=== PATIENT | female | born 1960 | race Caucasian/White ===

== ENCOUNTER 2021-09-16 16:17 | Inpatient (IN) | payer OTHER ==
[~2021-09-16] VITALS: Ht 160 cm; Wt 181.9 kg
--- NOTE | 2021-09-16 19:04 | NUR ---
ADMISSION NOTE: PT ADMITTED AND ORIENTED TO ROOM. PT A/O X 4. NO COMPLAINTS OF PAIN. PT ON BIPAP 07/20 RATE 14 AT 100%. TELEMETRY PLACED. CALL LIGHT AND TABLE WITHIN REACH. FAMILY UPDATED. PT ON ENHANCED PRECAUTIONS DUE TO COVID. PT STATES SHE TESTED POSITIVE FOR COVID APPROX 2 WEEKS AGO. PT SON CALLED AND STATED PT IS PRESCRIBED HYDROCODONE AND HAS TAKEN APPROX 40 PILLS WITHIN THE LAST 3 DAYS. FALL PRECAUTIONS IN PLACE. WILL CONTINUE TO MONITOR.
[2021-09-16 19:26] LABS: BE(vivo) 5.2 mmol/L (-2 to +3); HCO3 33.4 mmol/L (22.0-26.0); PCO2 63.7 mmHg (35.0-45.0); PO2 156.4 mmHg (80.0-100.0); pH 7.338 (7.360-7.450); sO2 98.8 % (92.0-98.0)
[2021-09-16 19:44] VITALS: BP 132/72
[2021-09-16 20:08] LABS: RBC 5.14 mil/uL (4.20-5.00)
[2021-09-16 20:10] LABS: HEMATOCRIT 45.1 % (37.0-47.0); HEMOGLOBIN 15.3 gm/dL (12.0-15.0); MCH 29.8 pg (26.0-34.0); MCHC 33.9 g/dL (28.0-37.0); MCV 87.8 fL (80.0-100.0); RDW 14.2 % (10.5-14.5); WBC 5.4 thou/uL (4.0-11.0)
[2021-09-16 20:26] LABS: ALBUMIN 2.6 g/dL (3.4-5.0); CALCIUM 8.6 mg/dL (8.5-10.1); CREATININE 0.8 mg/dL (0.6-1.0); MAGNESIUM 2.2 mg/dL (1.8-2.4); TOTAL BILIRUBIN 0.5 mg/dL (0.2-1.0); TOTAL PROTEIN 6.9 g/dL (6.4-8.2)
[2021-09-16] MEDS ORDERED: AMBIEN 10 MG TA10 MG (21:55)
[2021-09-16] MEDS ORDERED: NORCO 10-325 T1 EACH PO (21:56)
[2021-09-16] MEDS ORDERED: LYRICA CR165 MG PO (21:57)
[2021-09-16] MEDS ORDERED: CYMBALTA20 MG PO (21:58)
[2021-09-16] MEDS ORDERED: DESYREL150 MG PO (22:04)
--- NOTE | 2021-09-16 23:25 | NUR ---
PT LETHARGIC TRIED TO GET OOB UNASSISTED AND WAS STUCK HALF OUT OF BED WITH BIPAP MASK OFF SATS IN THE 70'S. RETURNED TO BED AND BIPAP REPLACED SATS UP TO 98% WITHIN 60 SECONDS OF BEING REPLACED. BED ALARM SET PT EDUCATED NOT TO GET OOB WITHOUT ASSISTANCE. PUREWICK PLACED. CONTINUE TO MONITOR.
[2021-09-17] VITALS (8 sets, daily range): BP systolic 132–149; BP diastolic 58–80
[2021-09-17 03:02] LABS: HEMATOCRIT 45.1 % (37.0-47.0); MCH 29.2 pg (26.0-34.0); MCHC 33.2 g/dL (28.0-37.0); MCV 88.2 fL (80.0-100.0); RBC 5.12 mil/uL (4.20-5.00); WBC 4.7 thou/uL (4.0-11.0)
[2021-09-17 03:11] LABS: CREATININE 0.7 mg/dL (0.6-1.0); POTASSIUM 3.9 mmol/L (3.5-5.1)
--- NOTE | 2021-09-17 05:21 | NUR ---
PROGRESS PT LETHARGIC BUT WAKES WITH VERBAL STIMULI. ON BIPAP AT 70% SLEPT MOST OF SHIFT. VSS, SATS MAINTAINING READING IN THE UPPER 90'S (97% TO 99%). LUNGS DIMINISHED NO COUGH NOTED. TOOK MEDS WHOLE WITH SIP OF WATER. OFFERED SIPS Q1 TO 2 HRS THROUGHOUT NIGHT WHEN AWAKE. PT DID GET CONFUSED AND TRIED TO GET OOB AT START OF SHIFT. PUREWICK PLACED BUT NO URINARY OUTPUT YET. CONSULTS CALLED. SLIDER PLACED UNDER PT AND BARIATRIC BED TO BE ORDERED IN AM. CONTINUE TO MONITOR.
--- NOTE | 2021-09-17 07:27 | NUR ---
ORDERS FOR EVAL AND TREAT HOWEVER Pt COVID POSITIVE AND ON BIPAP. PER DEPARTMENT PROTOCOL WILL HOLD OFF ON EVAL UNTIL Pt OFF BIPAP AND CAN TOLERATE MOBILITY
--- NOTE | 2021-09-17 13:31 | NUR ---
INITIAL ASSESSMENT: RAHEL reviewed chart and spoke with nursing and attending physician. Pt was transferred to [facility] from [facility], due to COVID. Pt placed in Enhanced Isolation. Pt with hx HTN/obesity. Pt is afebrile and requiring optiflow/bipap support. Pt is on IV abx and IV steroids. RAHEL placed call to pt's spouse, Kris, ([phone]). Voice mail box has not been set up. RAHEL left voice message on additional contact number for Kris ([phone]). Per chart, pt lives in [place], [place]. Therapy ordered and is on hold at this time, until pt is able to participate. RAHEL is following to assist as needed with discharge planning.
[2021-09-17] MEDS ORDERED: FUROSEMIDE 40 M40 MG PO (17:16)
[2021-09-17] MEDS ORDERED: LINZESS290 MCG PO (17:18)
[2021-09-17] MEDS ORDERED: COZAAR 25 MG TA25 M1 PO (17:21)
[2021-09-17] MEDS ORDERED: MELOXICAM15 MG PO (17:24)
[2021-09-17] MEDS ORDERED: OMEPRAZOLE40 MG PO (17:24)
--- NOTE | 2021-09-17 18:25 | NUR ---
PT A/O X 4. PT TRANSFERRED TO BARIATRIC BED DURING SHIFT. PT ABLE TO GET UP TO BSC X 2. BM X 2, DIARRHEA. PT TITRATED DOWN FROM BIPAP TO OPTIFLOW CURRENTLY AT 50 L 80% FIO2. NO URINE OUTPUT DURING SHIFT. WHEN RN ASKED ABOUT URINATION, PT REPLIED THAT SHE TAKES "WATER PILL AT HOME". NOT IN MED REC. UPDATED PT MED REC. SPOKE WITH FAMILY AND UPDATED. PT AT TIMES ANXIOUS AND ASKED THIS RN "AM I GOING TO ". POOR INTAKE. FALL PRECAUTIONS IN PLACE. WILL CONTINUE TO MONITOR.
--- NOTE | 2021-09-17 21:45 | NUR ---
PT ALERT AND ORIENTED X4. VSS AFEBRILE. SAT 96% ON OPTIFLOW. RT PLACED PT ON BIPAP AT HS 70% FIO2. LUNGS SOUND DIMINISHEWD. UNLABORED ON BIPAP. C/O GENERALIZED PAIN. MEDICATED WITH 1 OXYCODONE. BED DOWN CALL LIGHT IN REACH. PT ON ESTELLE MATTRESS.
[2021-09-18 04:30] VITALS: BP 147/78
[2021-09-18 05:07] LABS: GLYCOHEMOGLOBIN (HGB A1C) 5.3 % (4.8-5.6)
--- NOTE | 2021-09-18 05:22 | NUR ---
PT SLEEPY AWAKENS EASILY. VSS 98.3 AX. PT C/O GENERALIZED DISCOMFORT. MEDICATED WITH 1 HYDROCODONE. PRESENTLY PT FELL BACK ASLEEP NO S/S DISCOMFORT. PT ON BIPAP 70% FIO2. UNLABORED PRESENTLY . 94% ON BIPAP. CEFEPIME INFUSING R CHRISTIANSON ORDERED. PRINCE PLACED EARLIER DUE TO PT HAD NOT VOIDED SINCE AFTER DAY SHIFT BLADDER SCANNED PT. WAS NOTIFIED ON DAY SHIFT. LASIX GIVEN ORDERED. NOTIFIED PHYSICAL THERAPIST PT HAD NOT VOIDED AFTER LASIX GIVEN AND OF 701ML VOLUME SCANNED FROM BLADDER SCANNER. PRINCE PLACED ORDERED. 700 ML TEA COLORED URINE DRAINED FROM CATHETER IMMEDIATELY WHEN CATHETER PLACED. TOTAL 900 ML DRAINED THIS SHIFT. NO BM THIS SHIFT SO FAR. ZGARD APPLIED TO GRANT AREA. AND SKIN FOLDS. PT STATED BARIATRIC MATTRESS FEELS BETTER AFTER LUMP INFLATED UNDERNEATH HER.
[2021-09-18 08:23] VITALS: BP 136/65
--- NOTE | 2021-09-18 09:19 | HC ---
[facility] [place] [address] [address] CONSULTATION Name: CHRISTI WOODY Room #: 356-P ADM IN M.R.#: [id number] Admission: 09/16/21 Attend Phys: Jose Lees MD Discharge: Date of : 58 Report #: [id number] THIS REPORT FOR: cc: UNKNOWN UNKNOWN Froy Graf MD ~ DATE OF SERVICE: 09/17/2021 INFECTIOUS DISEASE CONSULTATION ATTENDING PHYSICIAN: Dr. Santiago. REASON FOR EVALUATION: Recent diagnosis of COVID-19 infection complicated by pneumonitis and respiratory failure. The patient with morbid obesity. HISTORY OF PRESENT ILLNESS: Chart reviewed. The patient examined. This is a 60-year-old woman who was admitted in transfer with progressive dyspnea, was diagnosed with COVID-19 pneumonia, apparently had been ill for the last 2 weeks, was found to be hypoxemic, subsequently required increasing supplemental oxygen, now on BiPAP at 70% on transfer. It is not clear if she had any fevers or chills. Did admit to cough. Notes she had some anorexia, although taking small amounts of p.o. No significant nausea or diarrhea. Initial ABGs show pH of 7.338, pCO2 of 63.7, pO2 of 156.4 and was on FiO2 of 100%, basically on BiPAP. ProBNP had elevated at 2789, procalcitonin 0.23. She is currently on 50 liters per minute, FiO2 of 91% on Optiflow. ALLERGIES: None known. CURRENT MEDICATIONS: Include enoxaparin, insulin lispro, ceftriaxone, azithromycin, ascorbic acid, zinc, dexamethasone, and famotidine. PAST MEDICAL HISTORY: History of fibromyalgia, hypertension, morbid obesity, and chronic knee pain. SOCIAL HISTORY: Nonsmoker, no ethanol, no illicit drug use. FAMILY HISTORY: Noncontributory. REVIEW OF SYSTEMS: Otherwise, unremarkable with the exception of the above. PHYSICAL EXAMINATION: GENERAL: Again, she is morbidly obese. She is generally lucid. She is in moderate distress. VITAL SIGNS: Temperature 97.5, pulse 91, respirations 12, blood pressure 132/74, saturation is 96%. SKIN: Warm, dry, no rashes. [address] [address] CONSULTATION Name: CHRISTI WOODY Room #: 356-P [facility] IN .R.#: [id number] Admission: 09/16/21 Attend Phys: Jose Lees MD Discharge: Date of : 58 Report #: [id number] HEENT: Normocephalic. Extraocular muscles intact. Nasal cannula with Optiflow in place. NECK: Supple. It is thick. LUNGS: Overall diminished breath sounds. Few scattered coarse sounds. HEART: Distant, regular, borderline tachycardic. ABDOMEN: Large pannus, generally firm, nontender. GENITOURINARY AND RECTAL: Deferred. LABORATORY DATA: Recent electrolytes, sodium 138, potassium 3.9, chloride 96, bicarbonate is 34, anion gap of 8, BUN and creatinine 20 and 0.7. CBC: White count of 4.7, H and H 15.0 and 45.1, platelets 164. ASSESSMENT AND PLAN: COVID-19 infection, complicated by pneumonitis and respiratory failure in a patient with morbid obesity, has been ill for the last couple of weeks, would be concerned about secondary bacterial pneumonitis. I think it is reasonable to broaden out her therapy. She is quite tenuous at this point. Continue dexamethasone and vitamins including cholecalciferol. I do not think there is a role for remdesivir at this point given the 2-week interval since her test positivity. We will repeat a chest x-ray, although probably difficult to ascertain too much information given her size. See how she does clinically continue efforts to wean off oxygen support as allowed. Continue to monitor expectantly. She is certainly at risk for additional complications and clinical deterioration. Continue supportive care. <ELECTRONICALLY SIGNED> By: Froy Graf MD 09/18/21 0919 [id number] Froy Graf MD /nt
[2021-09-18 11:29] VITALS: BP 144/67
--- NOTE | 2021-09-18 11:52 | NUR ---
RAHEL reviewed chart and spoke with nursing and attending physician. Pt remains in Enhanced Isolation due to COVID. Pt is afebrile and requiring optiflow and bipap support. Pt is on IV abx and IV steroids. No weekend discharge planned. Therapy ordered. 5N consult placed today. RAHEL spoke with pt via phone. Introduced role of SW. Pt is alert/orientated x 4. Pt reports she lives at home with her , who is able to assist her as needed. Pt has a walker. No steps to navigate. There is a ramp to enter their home. SW discussed possible post acute placement for continued rehab and medical mgmt. Pt states she would prefer to go home, as she thinks she will recover better at home. SW explained high O2 demands at this time. Pt agreeable to discuss discharge disposition on Tuesday. RAHEL updated 5N rehab physician and attending physician. SW is following to assist as needed with discharge planning.
[2021-09-18 12:17] LABS: BE(vivo) 14.5 mmol/L (-2 to +3); HCO3 39.7 mmol/L (22.0-26.0); PCO2 49.8 mmHg (35.0-45.0); PO2 90.8 mmHg (80.0-100.0); pH 7.519 (7.360-7.450); sO2 97.5 % (92.0-98.0)
[2021-09-18 16:06] VITALS: BP 133/56
[2021-09-18 19:56] VITALS: BP 141/81
[2021-09-19 04:03] VITALS: BP 150/88
--- NOTE | 2021-09-19 04:51 | NUR ---
ASSUMED PT CARE AT 1900. PT IS RESTING COMFORTABLY IN BED. TURNED PT Q2 AND PRN. PT ON OPTIFLOW 50L 70% FIO2 AND USES BIPAP AT BEDTIME SET AT 70% FIO2. O2 SATS >95%. VSS AFEBRILE. PT HAD C/O OF BACK PAIN. ADMINISTERED NORCO PRN AND NOTED RELIEF. PT HAS POOR PO INTAKE. PT IS PROGRESSING SLOWLY TOWARDS POC GOALS. ALL NEEDS ARE MET AT THIS TIME. WILL CONTINUE TO MONITOR FOR ANY CHANGES.
[2021-09-19 07:28] VITALS: BP 152/80
[2021-09-19 11:20] VITALS: BP 146/66
[2021-09-19 15:19] VITALS: BP 157/82
--- NOTE | 2021-09-19 17:14 | NUR ---
NOTIFIED TO PLACE A PERIPHERAL LINE. VEINS IN THE UPPER ARM DEEP, 3-4+CM. DISCUSSED MIDLINE WITH THE PATIENT INCLUDING RISKS AND BENIFITS. SHE CONSENTED TO MIDLINE PLACEMENT. A #4F MIDLINE WAS PLACED PER HOSPITAL POLICY. THE LINE WAS TRIMMED TO 14CM AND ADVANCED WITHOUT DIFFICULTY. THE LINE WAS SECURED AND RELEASED FOR USE
--- NOTE | 2021-09-19 18:26 | NUR ---
ASSUMED PATIENT CARE AT 0700. A/O X4. TOLERATED ON OPTIFLOW. LOOSE STOOL FOUR TIMES. STOOL CDIFF SENT. SLOWLY TOWARDS POC GOALS.
[2021-09-19 19:50] VITALS: BP 144/63
--- NOTE | 2021-09-20 01:28 | NUR ---
PT ALERT AND ORIENTED X4. SHE HAS BEEN PLEASANT AND COOPERATIVE TONIGHT, VSS SR ON THE MONITOR. UNLABORED ON CURRENT OPTI FLOW SETTINGS. RT KEEPING ON OPTIFLOW SINCE SHE IS DOING WELL ON CURRENT SETTINGS. BED DOWN CALL LIGHT IN REACH.
[2021-09-20 03:35] VITALS: BP 152/86
[2021-09-20 07:20] VITALS: BP 171/95
--- NOTE | 2021-09-20 07:43 | NUR ---
PT RESTING QUIETLY TONIGHT. PT MAINTAINED SATS AT 98% ON 50%FIO2 AND 50LF ON THE OPTIFLOW THROUGHOUT THE NIGHT, INC OF STOOL X1. RoseanneGARD APPLIED.VSS.
[2021-09-20 11:14] VITALS: BP 158/84
[2021-09-20 15:23] VITALS: BP 147/89
--- NOTE | 2021-09-20 20:01 | NUR ---
ASSUMED PATIENT CARE AT 0700. A/O X4. FOUR TIMES LOOSE STOOL. TITRATED 02 TO 7L/NC. PATIENT REFUSED REHAB OPTION. UPDATED TO PATIENT SON. SLOWLY TOWARDS POC GOALS.
[2021-09-20 20:41] VITALS: BP 146/88
[2021-09-21 07:47] VITALS: BP 163/100
[2021-09-21 11:44] VITALS: BP 158/84
--- NOTE | 2021-09-21 11:51 | NUR ---
RAHEL reviewed chart and spoke with nursing and attending physician. Pt remains in Enhanced Isolation due to COVID. Pt is afebrile and on 7L of O2. Pt is on IV abx and IV steroids. 5N consulted. Pt would prefer to return directly home upon discharge. RAHEL placed several calls to pt's room. Line is busy. Will need to discuss discharge disposition with pt. Awaiting input from 5N. RAHEL is following to assist as needed with discharge planning.
[2021-09-21 11:59] LABS: HEMATOCRIT 42.9 % (37.0-47.0); HEMOGLOBIN 14.5 gm/dL (12.0-15.0); MCH 28.9 pg (26.0-34.0); MCHC 33.8 g/dL (28.0-37.0); MCV 85.3 fL (80.0-100.0); PLATELET COUNT 168 thou/uL (150-400); RBC 5.03 mil/uL (4.20-5.00); RDW 13.3 % (10.5-14.5); WBC 5.9 thou/uL (4.0-11.0)
[2021-09-21 12:19] LABS: ALBUMIN 2.5 g/dL (3.4-5.0); CALCIUM 9.2 mg/dL (8.5-10.1); CREATININE 0.7 mg/dL (0.6-1.0); TOTAL BILIRUBIN 1.1 mg/dL (0.2-1.0); TOTAL PROTEIN 6.4 g/dL (6.4-8.2)
[2021-09-21 12:29] LABS: ABSOLUTE NEUTROPHILS 4.9 thou/uL (1.4-8.2); ANISOCYTOSIS SLIGHT; METAMYELOCYTES 2 %; MYELOCYTES 2 %
[2021-09-21 15:20] VITALS: BP 152/86
--- NOTE | 2021-09-21 19:27 | NUR ---
ASSUMED PATIENT CARE AT 0700. A/O X4. TITRATED O2 TO 5L/NC. PATIENT NEED 12L/NC WITH ACTIVITY. SLOWLY TOWARDS POC GOALS.
[2021-09-21 21:14] VITALS: BP 142/75
[2021-09-22 02:30] VITALS: BP 167/92
--- NOTE | 2021-09-22 05:01 | NUR ---
Patient is alert and oriented x4. Patient is on enhanced precautions. Patient is on 5L of oxygen during the day, she utilizes CPAP at night when resting. Patients last BM was 09/21/21 and was loose. Patient has had no stools this shift. Patient has a morton in place that is patient. Patient puts out good amounts of yellow urine. Patient is cc/ tele and has been running sinus rhythm this shift. Patient has a midline IV in her right upper arm that is patent. Patient has been reporting increased amounts of pain in her right hip/ leg/ foot. Patient as been treated as ordered with pain medications. Repositioning was offered but patiet shortly after repositioned is yelling out 'help me' 'help me' 'dear god help me'. This RN goes to see what is wrong and patient reports that the repositioning is ineffective and that she wants to go back to her originial positioning. Patient is assisted back to her original positioning. Patient will continue to be monitored.
[2021-09-22 07:41] VITALS: BP 156/74
[2021-09-22 11:33] VITALS: BP 149/79
--- NOTE | 2021-09-22 12:44 | NUR ---
RAHEL reviewed chart and spoke with nursing and attending physician. Pt remains in Enhanced Isolation due to COVID. Pt is afebrile and on 5L of O2 at rest. Pt is on IV steroids. RAHEL faxed [facility] SNF list and [facility] DPOA ppwk to 3W. Nursing provided to pt. RAHEL spoke with pt via phone. Reviewed DPOA document and encouraged pt to notify nursing when she would like to complete form. RAHEL also reviewed SNF list with pt. Pt requests referrals to be sent to [facility]. Pt requests SW notify and discuss with her son, Kris. RAHEL spoke with Kris to provide update. Pt's son is agreeable with the two facilities in [place]. ARHEL faxed referrals to both facilities. RAHEL spoke with Cece in admissions at [facility]. Voice message left for Alex in admissions at [facility]. RAHEL is following to assist as needed with discharge planning. [facility]--
[2021-09-22 16:13] VITALS: BP 137/68
--- NOTE | 2021-09-22 17:23 | NUR ---
PT A/O X 4. PT ON 5 L NC. PT IS TO BE OFF ISOLATION ON 09/24/21. PT HAD LOOSE BM THIS SHIFT, INCONTINENT OF BOWEL. PRINCE IN PLACE. THIS RN ENCOURAGED PT TO DRINK WATER THIS SHIFT, PT STATED "I ONLY LIKE TO DRINK DIET PEPSI". PT HAS POOR APPETITE AND COMPLAINS "ALL FOOD TASTES THE SAME". PT GIVEN DPOA PAPERWORK THIS SHIFT TO SIGN. THIS RN SPOKE WITH PT SON, JOSE, X 3 THIS SHIFT. COMPLAINTS OF KNEE PAIN. WILL CONTINUE TO MONITOR.
[2021-09-22 19:25] VITALS: BP 127/72
[2021-09-23 04:20] VITALS: BP 144/78
--- NOTE | 2021-09-23 06:16 | NUR ---
Patient is alert and oriented x4 this shift. Patient is on enhanced precautions. Patient is on five liters of oxygen at this time. Patient is cc/ tele and has been running sinus rhythm this shift. patient has a foely catheter in place that is patent. patient has had no loose stools for this RN. patient has an midline placed in her right upper arm that is patent and saline locked. patient has reported pain in her right knee multiple times this shift. patient is treated with pain medication as ordered. patient will continue to be monitored.
[2021-09-23 07:54] VITALS: BP 150/75
--- NOTE | 2021-09-23 09:24 | NUR ---
RAHEL reviewed chart. Pt remains in Enhanced Isolation due to COVID. Enhanced Isolation to be discontinued on 09/24/2021, as pt started showing COVID symptoms on 09/03/2021. Pt is afebrile and on 5L of O2. PT is on IV steroids. RAHEL left message for Alex in admissions at [facility]. Pt has been accepted to [facility] from a clinical standpoint. Will need to clarify how much O2 they can provide at the facility. Pt required up to 12L with activitiy on 09/21. Awaiting therapy notes today. RAHEL spoke with Brenda at [facility], who states she will discuss with the clinical team. [place] will most likely not have a bed available this week. RAHEL is following to assist as needed with discharge planning.
[2021-09-23 11:05] VITALS: BP 131/66
[2021-09-23 15:39] VITALS: BP 132/79
--- NOTE | 2021-09-23 17:45 | NUR ---
RESUMED PT CARE THIS AM. PT A/O X 4. PT DISCOURAGED ABOUT NOT GETTING TO SEE FAMILY. THIS RN AFFIRMED PT IS OFF ISOLATION 09/24/21. PT COMPLAINS OF PAIN IN RIGHT KNEE, WITH MODERATE RELIEF FROM MEDICATION. ON [address]. WILL CONTINUE TO MONITOR.
[2021-09-23 19:34] VITALS: BP 131/76
--- NOTE | 2021-09-23 22:34 | NUR ---
PT RESTING IN BED. O2 PER NC 5L. LUNGS DIMINISHED IN BASES. OBESE. PRINCE TO DD. PT OFF ISOLATION TOMORROW AND VERBALIZED EXCITED TO VISIT WITH HER .
[2021-09-24 04:08] VITALS: BP 139/74
[2021-09-24 08:00] VITALS: BP 136/79
[2021-09-24 12:00] VITALS: BP 113/72
--- NOTE | 2021-09-24 15:37 | NUR ---
RAHEL reviewed chart and spoke with nursing and attending physician. Enhanced Isolation precautions have been discontinued. Pt is afebrile and on 5L of O2. Pt is on IV steroids. 5N re-evaluated pt and will submit for insurance authorization today. RAHEL spoke with Alex at [facility], who states that they are checking bed availability due to COVID outbreak at their facility. RAHEL spoke with Brenda at [facility], who states they do not have beds available this week. Brenda states they are willing to re-evaluate pt for possible admission. RAHEL spoke with pt's son, Kris, via phone to provide update. Kris states they would like to see if pt would qualify and be approved for 5N. Kris to discuss with pt and family. RHAEL updated 5N rehab office coordinator. RAHEL is following to assist as needed with discharge planning.
[2021-09-24 15:40] VITALS: BP 130/68
--- NOTE | 2021-09-24 18:38 | NUR ---
PT A/O X 4. PT ON 5 L NC. OFF ISOLATION TODAY, FAMILY AT BEDSIDE. VSS. FALL PRECAUTIONS IN PLACE. WILL CONTINUE TO MONITOR.
[2021-09-24 19:37] VITALS: BP 105/67
[2021-09-25 03:26] VITALS: BP 148/78
[2021-09-25 07:49] VITALS: BP 151/71
[2021-09-25 09:21] LABS: HEMATOCRIT 40.4 % (37.0-47.0); HEMOGLOBIN 13.6 gm/dL (12.0-15.0); MCH 28.9 pg (26.0-34.0); MCHC 33.6 g/dL (28.0-37.0); PLATELET COUNT 279 thou/uL (150-400); RDW 13.6 % (10.5-14.5); WBC 9.7 thou/uL (4.0-11.0)
[2021-09-25 09:41] LABS: ALBUMIN 2.7 g/dL (3.4-5.0); CALCIUM 8.7 mg/dL (8.5-10.1); CREATININE 0.7 mg/dL (0.6-1.0); POTASSIUM 3.5 mmol/L (3.5-5.1); TOTAL PROTEIN 6.3 g/dL (6.4-8.2)
[2021-09-25 11:19] LABS: ABSOLUTE NEUTROPHILS 7.8 thou/uL (1.4-8.2)
[2021-09-25 11:34] VITALS: BP 135/69
--- NOTE | 2021-09-25 13:38 | NUR ---
RAHEL reviewed chart and spoke with nursing and attending physician. 5N has submitted for insurance authorization for admission to in acute rehab. RAHEL faxed clinical/therapy updates to [facility] in [place] for review, per family request. Awaiting input from insurance at this time. RAHEL is following to assist as needed with discharge planning.
[2021-09-25 15:48] VITALS: BP 140/64
--- NOTE | 2021-09-25 18:29 | NUR ---
ASSUMED PATIENT CARE AT 0700. A/O X4. ON 2L/NC. SOLWLY TOWARDS POC GOALS.
[2021-09-25 19:32] VITALS: BP 112/57
[2021-09-26 03:16] VITALS: BP 140/70
--- NOTE | 2021-09-26 06:35 | NUR ---
ASSUMED PT CARE AT 1900. PT IS ALERT & ORIENTED X 3 (PERSON, PLACE, SITUATION) AND IS CALM & COOPERATIVE. CURRENTLY ON 3L O2 NC AND O2 SATS 94-95%. PRINCE TO DD AND ADEQUATE OUTPUT NOTED. PT HAD NO C/O OF PAIN. PT IS ABLE TO MAKE NEEDS KNOWN. PT PROGRESSING SLOWLY TOWARDS POC GOALS.
[2021-09-26 07:53] VITALS: BP 151/72
[2021-09-26 11:22] VITALS: BP 154/67
[2021-09-26 15:19] VITALS: BP 127/59
--- NOTE | 2021-09-26 18:30 | NUR ---
PROGRESSING TOWARDS POC GOALS.
[2021-09-26 18:54] VITALS: BP 129/57
[2021-09-26 19:14] VITALS: BP 128/74
[2021-09-27 04:26] VITALS: BP 140/70
--- NOTE | 2021-09-27 06:31 | NUR ---
CARE ASSUMED AT 1900. PT IS RESTING COMFORTABLY IN BED. NO SIGNS OF DISTRESS HOWEVER PT HAS HAD MULTIPLE C/O OF NAUSEA. ADMINISTERED ANTIEMETICS PRN. CURRENTLY ON 3L O2 NC AND O2 SATS 94-95%. VSS AFEBRILE. PT IS ABLE TO MAKE NEEDS KNOWN. PT IS PROGRESSING SLOWLY TOWARDS POC GOALS.
[2021-09-27 07:40] VITALS: BP 122/63
[2021-09-27 15:29] VITALS: BP 115/58
--- NOTE | 2021-09-27 18:21 | NUR ---
PT A/O X 4. PT ON 2 L NC. PT COMPLAINS OF KNEE PAIN WITH MODERATE RELIEF FROM MEDICATION. PT RUNNING SR/ST. NO COMPLAINTS OF NAUSEA. PT STATED TO THIS RN " SOON IM OFF OXYGEN I WANT TO GO HOME". FALL PRECAUTIONS IN PLACE. WILL CONTINUE TO MONITOR.
[2021-09-27 20:25] VITALS: BP 123/66
[2021-09-28] VITALS (7 sets, daily range): BP systolic 107–134; BP diastolic 67–73
--- NOTE | 2021-09-28 04:08 | NUR ---
PT MAKING SLOW PROGRESS TOWARDS GOALS. ON O2 AT 2L PER NC THROUGHOUT THE NIGHT. DENIED ANY SOA AT REST. ABLE TO ASSIST WITH TURNING IN BED WHEN CARE BEING DONE. NO DISTRESS NOTED WHEN TURNING ON HER SIDE. PT STATING THAT SHE IS WORKING TO GET HERSELF OFF OXYGEN SO SHE WILL BE ABLE TO BE DISCHARGED HOME.
--- NOTE | 2021-09-28 13:00 | NUR ---
RAHEL reviewed chart and spoke with nursing and attending physician. Pt has requested to discharge home today. RAHEL discussed with attending physician that has submitted for insurance authorization. RAHEL met with pt and spouse at bedside to discuss discharge plan. Pt and spouse are requesting to discharge home. RAHEL explained that pt will most likely need home oxygen and HH services are being recommended. Pt is aware and agreeable with both providers. Options discussed. No preference voiced. RAHEL confirmed pt's home address and phone number. Pt will need ambulance transportation home. Will need rest/exercise oximetry completed to determine home O2 needs. RAHEL faxed face sheet to Ricardo CHOUDHARY and Ana for review. Pt states her son, Kris, is agreeable with discharge plan. RAHEL updated rehab assistant to cancel auth request. RAHEL faced ambulance form to [facility] to start coordination of long distance transport. RAHEL is following to assist as needed with discharge planning.
[2021-09-28] MEDS ORDERED: PREDNISONE 10 M10 MG PO (16:26)
== END 2021-09-28 17:15 | disposition home health service (06) | DRG 871 ==
LOC: 3W 16:17 → 3N 16:21 → 3W 17:45
PROVIDERS: Hospitalist; Internal Medicine; Nurse Practitioner Family; Specialist; ADMIT Internal Medicine; ATTEND Internal Medicine
PROC: 05HD33Z Insertion of Infusion Device into Right Cephalic Vein, Percutaneous Approach (ICD-10-PCS; principal; 2021-09-18)
PROC: 5A09457 Assistance with Respiratory Ventilation, 24-96 Consecutive Hours, Continuous Positive Airway Pressure (ICD-10-PCS; 2021-09-18)
PROC: 5A0935A Assistance with Respiratory Ventilation, Less than 24 Consecutive Hours, High Flow/Velocity Cannula (ICD-10-PCS; 2021-09-24)
DX: A41.89 Other specified sepsis (principal); U07.1 COVID-19; J12.82 Pneumonia due to coronavirus disease 2019; J96.21 Acute and chronic respiratory failure with hypoxia; E43 Unspecified severe protein-calorie malnutrition; Z68.45 Body mass index [BMI] 70 or greater, adult; E66.01 Morbid (severe) obesity due to excess calories; F32.A Depression, unspecified; G89.4 Chronic pain syndrome; E11.65 Type 2 diabetes mellitus with hyperglycemia; Z79.4 Long term (current) use of insulin; I10 Essential (primary) hypertension
CPT/HCPCS: 10879; 27000